=== PATIENT | male | born 1985 | race Caucasian/White ===

== ENCOUNTER 2024-03-21 18:59 | Emergency (ER) | payer OTHER ==
[~2024-03-21] VITALS: Ht 190.5 cm; Wt 127.2 kg
[2024-03-21 19:49] LABS: BASOPHILS 0.9 % (0-2); EOSINOPHILS 4.7 % (0-6); HEMATOCRIT 44.9 % (35.0-50.0); HEMOGLOBIN 14.9 g/dL (12.0-18.0); MCH 29.5 (27-36); MCHC 33.1 g/dl (30-36); MCV 89.1 fl (81-99); MONOCYTES 8.6 % (0-12); NEUTROPHILS 62.8 % (39-80); PLATELET COUNT 212 K/uL (140-440); RBC 5.04 M/ul (4.3-5.7); RDW 14.2 (10.5-15.0)
[2024-03-21] MEDS ORDERED: TRIMETHOPRIM/SULFAMETHOXAZOLE 1 EA TAB PO ONE (20:00)
[2024-03-21] MEDS ORDERED: DIPHTH,PERTUSS(ACELL),TET VAC 0.5 ML SYRINGE IM ONE (20:00)
[2024-03-21 20:02] LABS: ALBUMIN/GLOBULIN RATIO 1.11 (1.1-2.4); ANION GAP 13.4 (7-21); BILIRUBIN, TOTAL 0.2 ng/dL (0.2-1.0); BUN/CREATININE RATIO 9.37 (6.0-28.6); CREATININE, SERUM 0.96 mg/dL (0.70-1.30); POTASSIUM 4.4 mmol/L (3.5-5.1); PROTEIN, TOTAL 7.6 g/dL (6.4-8.2)
[2024-03-21] MEDS ORDERED: CEFTRIAXONE500 MG INJ (20:15)
[2024-03-21] MEDS ORDERED: DOXYCYCLINE HY100 MG PO (20:15)
[2024-03-21] MEDS ORDERED: BENZTROPINE ME0.5 MG PO (20:16)
[2024-03-21] MEDS ORDERED: INVEGA3 MG PO (20:16)
[2024-03-21] MEDS ORDERED: ZOLOFT50 MG PO (20:17)
[2024-03-21] MEDS ORDERED: EFFEXOR XR75 MG PO (20:17)
[2024-03-21] MEDS ORDERED: LIPITOR20 MG PO (20:18)
[2024-03-21] MEDS ORDERED: ZYRTEC10 M3 PO (20:18)
[2024-03-21] MEDS ORDERED: NASACORT10.8 ML NAS (20:18)
[2024-03-21] MEDS ORDERED: VITAMIN D350 MCG PO (20:19)
[2024-03-21] MEDS ORDERED: BACTRIM DS TAB1 EACH PO (20:27)
[2024-03-21] MEDS ORDERED: AMOX TR-K CLV1 EAC1 PO (20:33)
[2024-03-21 20:41] VITALS: BP 121/86
== END 2024-03-21 20:43 | disposition other institution, planned readmission (95) ==
LOC: ED 18:59
PROVIDERS: Internal Medicine
DX: L03.113 Cellulitis of right upper limb (principal); L02.511 Cutaneous abscess of right hand; Z79.899 Other long term (current) drug therapy
CPT/HCPCS: 36415; 73130; 80053; 85025; 90471; 90715; 99283-25; A9270

== ENCOUNTER 2024-09-26 16:33 | Emergency (ER) | payer OTHER ==
[~2024-09-26] VITALS: Ht 190.5 cm; Wt 88.0 kg
[~2024-09-26 16:33] MED LIST: AMOX TR-K CLV1 EAC1 PO; BACTRIM DS TAB1 EACH PO; BENZTROPINE ME0.5 MG PO; CEFTRIAXONE500 MG INJ; DOXYCYCLINE HY100 MG PO; EFFEXOR XR75 MG PO; INVEGA3 MG PO; LIPITOR20 MG PO; NASACORT10.8 ML NAS; VITAMIN D350 MCG PO; ZOLOFT50 MG PO; ZYRTEC10 M3 PO
[2024-09-26] MEDS ORDERED: DOXYCYCLINE HYCLATE 100 MG HOME.PACK PO ONE (19:30)
[2024-09-26] MEDS ORDERED: DOXYCYCLINE HY100 MG PO (19:33)
[2024-09-26 19:54] VITALS: BP 118/76
== END 2024-09-26 19:54 | disposition home or self-care (01) ==
LOC: ED 16:33
DX: L03.011 Cellulitis of right finger (principal); Z79.899 Other long term (current) drug therapy
CPT/HCPCS: 99283; A9270